=== PATIENT | female | born 1945 | race African-American/Black ===

== ENCOUNTER 2018-05-03 08:05 | Inpatient (IN) ==
[2018-05-01 13:25] LABS: Basophils % 0.7 % (0.0-0.8); Eosinophils # 0.2 10*3/uL (0.0-0.87); Hematocrit 39.3 VOL% (35.7-47.0); Hemoglobin 12.7 GM/DL (12.0-16.0); Immature Granulocytes % 0.2 %; Immature Granulocytes Absolute 0.01 #; Lymphocytes % 34.4 % (21.3-54.2); Mean Corpuscular HGB Conc 32.3 GM/DL (32-36); Mean Corpuscular Hemoglobin 28 PG (27-34); Mean Corpuscular Volume 85.6 FL (87-102); Monocytes # 0.5 10*3/uL (0.11-0.8); Monocytes % 8.2 % (1.7-12.7); Neutrophils % 52.5 % (38.7-73.9); Platelet Count 278 T/CUMM (130-400); Red Blood Count 4.59 MC/CUMM (3.8-5.5); Red Cell Distribution Width 14.4 % (9.3-17.3); White Blood Count 5.8 T/CUMM (4-12)
[2018-05-01 13:43] LABS: Alanine Aminotransferase 21 U/L (13-56); Albumin 3.5 G/DL (3.4-5.0); Alkaline Phosphatase 109 U/L (45-117); Amylase 40 U/L (25-115); Aspartate Amino Transferase 16 U/L (0-37); Bilirubin,Total < 0.39 MG/DL (0.2-1.0); Blood Urea Nitrogen 23 MG/DL (7-18); Calcium 8.8 MG/DL (8.5-10.1); Glucose 133 MG/DL (74-106); Osmolality,Calculated 282.5 MOS/KG (273-304); Sodium 139 MMOL/L (136-145)
[~2018-05-03 08:05] MED LIST: ceFAZolin 1,000 MG VIAL ONE
[2018-05-03] MEDS ORDERED: LIDOCAINE 1%/EPI INJ 20 ML VIAL ONE (08:36)
[2018-05-03] MEDS ORDERED: BUPIVACAINE 0.25% /EPI 10 ML VIAL ONE (08:36)
[2018-05-03] MEDS ORDERED: TISSUE ADHESIVE 1 EACH APPLICATOR TOP ONE (08:36)
[2018-05-03] MEDS ORDERED: DIAZEPAM 5 MG TABLET PO ONE (08:53)
[2018-05-03] MEDS ORDERED: LACTATED RINGERS 1,000 ML IV SCH (09:00)
[2018-05-03] MEDS ORDERED: ONDANSETRON 4 MG/2 ML VIAL IV PRN ×2 (10:26→10:45)
[2018-05-03] MEDS ORDERED: PROPOFOL 200 MG/20 ML VIAL IV ONE (10:32)
[2018-05-03] MEDS ORDERED: ONDANSETRON 4 MG/2 ML VIAL ONE (10:32)
[2018-05-03] MEDS ORDERED: fentaNYL 100 MCG/2 ML VIAL ONE (10:32)
[2018-05-03] MEDS ORDERED: SEVOFLURANE 1 UNIT/15 MINUTE INH ONE (10:32)
[2018-05-03] MEDS ORDERED: DEXAMETHASONE 10 MG/1 ML VIAL ONE (10:32)
[2018-05-03] MEDS ORDERED: ROCURONIUM 100 MG/10 ML VIAL IV ONE (10:33)
[2018-05-03] MEDS ORDERED: GLYCOPYRROLATE 0.4 MG/2 ML VIAL ONE (10:33)
[2018-05-03] MEDS ORDERED: ACETAMINOPHEN 1,000 MG/100 ML VIAL IV ONE (10:33)
[2018-05-03] MEDS ORDERED: SUCCINYLCHOLINE 200 MG/10 ML VIAL ONE (10:33)
[2018-05-03] MEDS ORDERED: NEOSTIGMINE 10 MG/10 ML VIAL ONE (10:33)
[2018-05-03] MEDS ORDERED: hydrALAZINE 20 MG/1 ML VIAL ONE (10:34)
[2018-05-03] MEDS ORDERED: diphenhydrAMINE 50 MG/1 ML VIAL IV PRN (10:45)
[2018-05-03] MEDS ORDERED: MEPERIDINE 25 MG/1 ML VIAL IV PRN (10:45)
[2018-05-03] MEDS ORDERED: PROMETHAZINE INJ 25 MG in SODIUM CHLORIDE 0.9% 50 ML IV PRN (10:45)
[2018-05-03] MEDS ORDERED: MORPHINE 10 MG/1 ML VIAL IV PRN (10:45)
[2018-05-03] MEDS ORDERED: hydrALAZINE 20 MG/1 ML VIAL IV ONE (10:45)
[2018-05-03 12:38] LABS: Hematocrit 40.6 VOL% (35.7-47.0); Hemoglobin 13.2 GM/DL (12.0-16.0)
[2018-05-03] MEDS ORDERED: GLUCAGON 1 MG VIAL IM PRN ×2 (13:02)
[2018-05-03] MEDS ORDERED: DEXTROSE 50% 25 GM/50 ML VIAL IV PRN ×2 (13:02)
[2018-05-03] MEDS: INSULIN GLARGINE 100 UNIT/ML SUBCUT SCH (13:15)
[2018-05-03] MEDS: DICLOFENAC 1% GEL 100 GM TUBE TOP SCH ×3 (13:41→20:57)
[2018-05-03] MEDS: INSULIN LISPRO 100 UNIT/ML SUBCUT SCH ×2 (17:34→20:56)
[2018-05-03] MEDS: MORPHINE 4 MG/1 ML VIAL IV PRN (17:35)
[2018-05-03 19:32] LABS: Hematocrit 40.1 VOL% (35.7-47.0); Hemoglobin 13.3 GM/DL (12.0-16.0)
[2018-05-03] MEDS: METOPROLOL TARTRATE 100 MG TABLET PO SCH (20:57)
[2018-05-04] MEDS: MORPHINE 4 MG/1 ML VIAL IV PRN (01:13)
[2018-05-04 05:02] LABS: Hemoglobin 12.1 GM/DL (12.0-16.0)
[2018-05-04 05:16] LABS: Calcium 8.6 MG/DL (8.5-10.1); Osmolality,Calculated 284.5 MOS/KG (273-304); Potassium 3.7 MMOL/L (3.5-5.1)
[2018-05-04] MEDS: INSULIN LISPRO 100 UNIT/ML SUBCUT SCH ×4 (09:19→20:24)
[2018-05-04] MEDS: INSULIN GLARGINE 100 UNIT/ML SUBCUT SCH (09:20)
[2018-05-04] MEDS: SIMVASTATIN 20 MG TABLET PO SCH (09:23)
[2018-05-04] MEDS: METOPROLOL TARTRATE 100 MG TABLET PO SCH ×2 (09:23→20:25)
[2018-05-04] MEDS: SERTRALINE 100 MG TABLET PO SCH (09:24)
[2018-05-04] MEDS: DICLOFENAC 1% GEL 100 GM TUBE TOP SCH ×4 (09:24→20:24)
[2018-05-04] MEDS: hydrOXYzine HCL 25 MG TABLET PO SCH (09:24)
[2018-05-04] MEDS ORDERED: MAGNESIUM SULF RIDER 2 GM in PREMIX 1 EACH IV PRN (13:38)
[2018-05-04] MEDS ORDERED: MAGNESIUM SULF RIDER 4 GM in PREMIX 1 EACH IV PRN (13:38)
[2018-05-05 06:26] LABS: Basophils % 0.2 % (0.0-0.8); Eosinophils # 0.1 10*3/uL (0.0-0.87); Eosinophils % 1.1 % (0.00-10.9); Hematocrit 37.1 VOL% (35.7-47.0); Hemoglobin 11.9 GM/DL (12.0-16.0); Immature Granulocytes % 0.3 %; Immature Granulocytes Absolute 0.03 #; Lymphocytes # 1.4 10*3/uL (1.4-4.0); Lymphocytes % 15.6 % (21.3-54.2); Mean Corpuscular HGB Conc 32.1 GM/DL (32-36); Mean Corpuscular Hemoglobin 27 PG (27-34); Mean Corpuscular Volume 84.5 FL (87-102); Mean Platelet Volume 11.6 FL (9.6-12.0); Monocytes # 0.7 10*3/uL (0.11-0.8); Monocytes % 7.4 % (1.7-12.7); Neutrophils # 6.9 10*3/uL (1.4-7.4); Neutrophils % 75.4 % (38.7-73.9); Platelet Count 217 T/CUMM (130-400); Red Blood Count 4.39 MC/CUMM (3.8-5.5); Red Cell Distribution Width 14.7 % (9.3-17.3); White Blood Count 9.2 T/CUMM (4-12)
[2018-05-05 06:46] LABS: Calcium 9.2 MG/DL (8.5-10.1); Osmolality,Calculated 282.3 MOS/KG (273-304); Potassium 3.4 MMOL/L (3.5-5.1)
[2018-05-05] MEDS: MORPHINE 4 MG/1 ML VIAL IV PRN (07:13)
[2018-05-05] MEDS: INSULIN GLARGINE 100 UNIT/ML SUBCUT SCH (09:31)
[2018-05-05] MEDS: SERTRALINE 100 MG TABLET PO SCH (09:32)
[2018-05-05] MEDS: hydrOXYzine HCL 25 MG TABLET PO SCH (09:32)
[2018-05-05] MEDS: INSULIN LISPRO 100 UNIT/ML SUBCUT SCH (09:33)
[2018-05-05] MEDS: SIMVASTATIN 20 MG TABLET PO SCH (09:33)
[2018-05-05] MEDS: DICLOFENAC 1% GEL 100 GM TUBE TOP SCH (09:33)
[2018-05-05] MEDS: METOPROLOL TARTRATE 100 MG TABLET PO SCH (09:33)
[2018-05-05 12:08] VITALS: BP 183/96
== END 2018-05-05 11:47 | disposition home or self-care (01) | DRG 418 ==
LOC: N.OR 08:05 → N.SDSINP 08:07 → N.3E 11:04
PROVIDERS: ADMIT Surgery; ATTEND Surgery
PROC: LAPCHOL (2018-05-03 09:08)

== ENCOUNTER 2021-07-12 14:17 | Inpatient (IN) ==
[2021-07-12] MEDS ORDERED: MORPHINE 2 MG/1 ML SYRINGE IV STA (18:48)
[2021-07-12] MEDS ORDERED: ALUM/MAG/SIMETH/LIDO VISC 1:1 30 ML BOTTLE PO STA (18:48)
[2021-07-12] MEDS ORDERED: ONDANSETRON ODT 4 MG TABLET PO STA (18:48)
[2021-07-12] MEDS ORDERED: PANTOPRAZOLE 40 MG VIAL IV STA (18:48)
[2021-07-12] MEDS ORDERED: SODIUM CHLORIDE 0.9% 500 ML IV STA ×2 (18:48→20:07)
[2021-07-12 18:54] LABS: Basophils % 0.1 % (0.0-0.8); Hematocrit 37.7 VOL% (35.7-47.0); Hemoglobin 11.4 GM/DL (12.0-16.0); Immature Granulocytes % 0.5 %; Immature Granulocytes Absolute 0.04 #; Lymphocytes # 1.3 10*3/uL (1.4-4.0); Lymphocytes % 17.9 % (21.3-54.2); Mean Corpuscular HGB Conc 30.2 GM/DL (32-36); Mean Corpuscular Volume 84.3 FL (87-102); Mean Platelet Volume 10.9 FL (9.6-12.0); Monocytes % 7.7 % (1.7-12.7); Neutrophils % 73.8 % (38.7-73.9); Platelet Count 391 T/CUMM (130-400); Red Blood Count 4.47 MC/CUMM (3.8-5.5); White Blood Count 7.3 T/CUMM (4-12)
[2021-07-12] MEDS ORDERED: PIPERACILLIN/TAZOBACTAM 3,375 MG in SODIUM CHLORIDE 0.9% 100 ML IV STA (20:06)
[2021-07-12 20:09] LABS: Alanine Aminotransferase 35 U/L (13-56); Albumin 2.3 G/DL (3.4-5.0); Alkaline Phosphatase 280 U/L (45-117); Amylase 24 U/L (25-115); Aspartate Amino Transferase 89 U/L (0-37); Blood Urea Nitrogen 32 MG/DL (7-18); Calcium 8.8 MG/DL (8.5-10.1); Carbon Dioxide 25 MMOL/L (21-32); Estimated Glom Filtration Rate 109 ML/MIN; Glucose 257 MG/DL (74-106); Osmolality,Calculated 290.7 MOS/KG (273-304); Potassium 4.7 MMOL/L (3.5-5.1); Sodium 138 MMOL/L (136-145); Total Protein 6.5 G/DL (6.4-8.2)
[2021-07-12] MEDS ORDERED: MAGNESIUM SULF RIDER 2 GM/50 ML PREMIX IV STA (20:11)
[2021-07-12] MEDS ORDERED: ASPIRIN EC 325 MG TABLET PO STA (20:53)
[2021-07-12 21:28] LABS: Bacteria,Urine Occasional /HPF (Few); Bilirubin,Urine Negative (Negative); Blood, Urine Negative (Negative); Glucose,Urine (UA) Negative (Negative); Hyaline Casts,Urine 3 /LPF (0-3); Ketones,Urine Negative (Negative); Mucus,Urine Occasional /LPF (Occasional); Nitrite,Urine Negative (Negative); Protein,Urine Negative; RBC,Urine 3 /HPF (0-4); Squamous Epithelial Cell,Urine Occasional /HPF (0-10); Urine Appearance CLEAR (Clear); Urine Color Amber (Yellow); Urine Specific Gravity 1.024 (1.001-1.035)
[2021-07-12] MEDS ORDERED: POTASSIUM CHLORIDE RIDER 10 MEQ/100 ML PREMIX IV PRN (22:36)
[2021-07-12] MEDS ORDERED: ONDANSETRON 4 MG/2 ML VIAL IV PRN (22:36)
[2021-07-12] MEDS ORDERED: SIMETHICONE CHEW 125 MG TABLET PO PRN (22:36)
[2021-07-12] MEDS ORDERED: MAGNESIUM SULF RIDER 4 GM/100 ML PREMIX IV PRN (22:36)
[2021-07-12] MEDS ORDERED: MAGNESIUM SULF RIDER 2 GM/50 ML PREMIX IV PRN (22:36)
[2021-07-12] MEDS ORDERED: DEXTROSE 50% 25 GM/50 ML VIAL IV PRN (22:36)
[2021-07-12] MEDS ORDERED: ACETAMINOPHEN 325 MG TABLET PO PRN (22:36)
[2021-07-12] MEDS ORDERED: hydrALAZINE 20 MG/1 ML VIAL IV PRN (22:36)
[2021-07-12] MEDS ORDERED: POTASSIUM CHLORIDE 20 MEQ TABLET PO PRN (22:36)
[2021-07-12] MEDS ORDERED: GLUCAGON 1 MG VIAL IM PRN (22:36)
[2021-07-12] MEDS ORDERED: ENOXAPARIN 120 MG/0.8 ML SYRINGE SUBCUT STA (22:36)
[2021-07-12] MEDS ORDERED: ENOXAPARIN 40 MG/0.4 ML SYRINGE SUBCUT SCH (23:00)
[2021-07-12] MEDS ORDERED: ENOXAPARIN 100 MG/ML SYRINGE SUBCUT STA (23:17)
[2021-07-13] MEDS ORDERED: FUROSEMIDE 40 MG/4 ML VIAL IV STA (00:23)
[2021-07-13] MEDS: LEVOFLOXACIN INJ 750 MG/150 ML PREMIX IV SCH (00:53)
[2021-07-13 04:41] LABS: Eosinophils % 0.1 % (0.00-10.9); Hematocrit 34.8 VOL% (35.7-47.0); Hemoglobin 10.6 GM/DL (12.0-16.0); Immature Granulocytes % 0.6 %; Immature Granulocytes Absolute 0.04 #; Lymphocytes # 1.6 10*3/uL (1.4-4.0); Mean Corpuscular HGB Conc 30.5 GM/DL (32-36); Mean Corpuscular Volume 84.9 FL (87-102); Mean Platelet Volume 11.6 FL (9.6-12.0); Monocytes % 13.5 % (1.7-12.7); Neutrophils % 63.8 % (38.7-73.9); Platelet Count 373 T/CUMM (130-400); Red Cell Distribution Width 20.7 % (9.3-17.3)
[2021-07-13] MEDS: PIPERACILLIN/TAZOBACTAM 3,375 MG in SODIUM CHLORIDE 0.9% 100 ML IV SCH ×2 (05:12→16:59)
[2021-07-13 05:16] LABS: Calcium 8.7 MG/DL (8.5-10.1); Osmolality,Calculated 289.4 MOS/KG (273-304); Potassium 4.1 MMOL/L (3.5-5.1); Risk Ratio 3.33; Thyroid Stimulating Hormone 1.15 uIU/ml (0.358-3.74); VLDL Cholesterol 29.2 MG/DL
[2021-07-13] MEDS: INSULIN REGULAR 100 UNIT/ML SUBCUT SCH ×4 (08:48→20:56)
[2021-07-13] MEDS: DOCUSATE SODIUM 100 MG CAPSULE PO SCH ×2 (09:40→20:55)
[2021-07-13] MEDS: PANTOPRAZOLE 40 MG VIAL IV SCH (09:47)
[2021-07-13] MEDS: ENOXAPARIN 80 MG/0.8 ML SYRINGE SUBCUT SCH (11:28)
[2021-07-13] MEDS ORDERED: DEXTROSE 50% 25 GM/50 ML VIAL IV PRN (15:12)
[2021-07-13] MEDS: CLOTRIMAZOLE 10 MG TROCHE PO SCH ×2 (17:13→21:24)
[2021-07-14] MEDS: LEVOFLOXACIN INJ 750 MG/150 ML PREMIX IV SCH (00:12)
[2021-07-14] MEDS: PIPERACILLIN/TAZOBACTAM 3,375 MG in SODIUM CHLORIDE 0.9% 100 ML IV SCH ×5 (00:26→23:13)
[2021-07-14] MEDS: ENOXAPARIN 80 MG/0.8 ML SYRINGE SUBCUT SCH ×3 (00:26→22:37)
[2021-07-14] MEDS: CLOTRIMAZOLE 10 MG TROCHE PO SCH ×6 (06:13→22:36)
[2021-07-14 06:21] LABS: Basophils % 0.3 % (0.0-0.8); Eosinophils # 0.1 10*3/uL (0.0-0.87); Eosinophils % 0.6 % (0.00-10.9); Hematocrit 32.5 VOL% (35.7-47.0); Immature Granulocytes % 0.8 %; Immature Granulocytes Absolute 0.06 #; Lymphocytes # 1.4 10*3/uL (1.4-4.0); Lymphocytes % 17.4 % (21.3-54.2); Mean Corpuscular HGB Conc 30.8 GM/DL (32-36); Mean Corpuscular Volume 85.8 FL (87-102); Mean Platelet Volume 12.1 FL (9.6-12.0); Monocytes % 13.1 % (1.7-12.7); Neutrophils % 67.8 % (38.7-73.9); Platelet Count 309 T/CUMM (130-400); Red Blood Count 3.79 MC/CUMM (3.8-5.5); Red Cell Distribution Width 20.8 % (9.3-17.3); White Blood Count 7.8 T/CUMM (4-12)
[2021-07-14 06:48] LABS: Calcium 8.2 MG/DL (8.5-10.1); Osmolality,Calculated 290.3 MOS/KG (273-304); Potassium 3.5 MMOL/L (3.5-5.1)
[2021-07-14] MEDS: DOCUSATE SODIUM 100 MG CAPSULE PO SCH ×2 (09:49→20:27)
[2021-07-14] MEDS: PANTOPRAZOLE 40 MG VIAL IV SCH (09:51)
[2021-07-14] MEDS: INSULIN REGULAR 100 UNIT/ML SUBCUT SCH ×4 (12:41→20:28)
[2021-07-14] MEDS: MORPHINE 2 MG/1 ML SYRINGE IV PRN (18:25)
[2021-07-14] MEDS: DESITIN 4OZ/NYSTATIN 15 GRAM MIXTURE PASTE TOP SCH (20:29)
[2021-07-14] MEDS ORDERED: diphenhydrAMINE CAP 25 MG CAPSULE PO PRN (21:54)
[2021-07-15] MEDS: LEVOFLOXACIN INJ 750 MG/150 ML PREMIX IV SCH (03:25)
[2021-07-15 06:04] LABS: Basophils % 0.2 % (0.0-0.8); Eosinophils # 0.1 10*3/uL (0.0-0.87); Eosinophils % 1.2 % (0.00-10.9); Hematocrit 31.7 VOL% (35.7-47.0); Hemoglobin 9.6 GM/DL (12.0-16.0); Immature Granulocytes % 0.7 %; Immature Granulocytes Absolute 0.06 #; Lymphocytes % 11.6 % (21.3-54.2); Mean Corpuscular HGB Conc 30.3 GM/DL (32-36); Mean Corpuscular Volume 85.9 FL (87-102); Mean Platelet Volume 12.5 FL (9.6-12.0); Monocytes % 13.1 % (1.7-12.7); Neutrophils % 73.2 % (38.7-73.9); Platelet Count 291 T/CUMM (130-400); Red Blood Count 3.69 MC/CUMM (3.8-5.5); Red Cell Distribution Width 20.7 % (9.3-17.3); White Blood Count 8.9 T/CUMM (4-12)
[2021-07-15 06:15] LABS: Osmolality,Calculated 280.7 MOS/KG (273-304); Potassium 3.3 MMOL/L (3.5-5.1)
[2021-07-15] MEDS: CLOTRIMAZOLE 10 MG TROCHE PO SCH ×5 (06:33→21:38)
[2021-07-15 08:28] LABS: INR 1.1; PT Patient Result 12.7 SECS (10.5-12.0)
[2021-07-15] MEDS: INSULIN REGULAR 100 UNIT/ML SUBCUT SCH ×4 (08:28→21:24)
[2021-07-15] MEDS ORDERED: fentaNYL 12 MCG/HR PATCH TRANSDERM SCH (09:00)
[2021-07-15] MEDS: PIPERACILLIN/TAZOBACTAM 3,375 MG in SODIUM CHLORIDE 0.9% 100 ML IV SCH ×3 (10:24→23:25)
[2021-07-15] MEDS: PANTOPRAZOLE 40 MG VIAL IV SCH (10:25)
[2021-07-15] MEDS: DOCUSATE SODIUM 100 MG CAPSULE PO SCH ×2 (10:25→21:24)
[2021-07-15] MEDS: DESITIN 4OZ/NYSTATIN 15 GRAM MIXTURE PASTE TOP SCH ×2 (10:26→21:24)
[2021-07-15] MEDS: MORPHINE 2 MG/1 ML SYRINGE IV PRN ×2 (10:28→15:24)
[2021-07-15] MEDS: ENOXAPARIN 80 MG/0.8 ML SYRINGE SUBCUT SCH ×2 (13:00→23:26)
[2021-07-16] MEDS: LEVOFLOXACIN INJ 750 MG/150 ML PREMIX IV SCH (03:31)
[2021-07-16] MEDS: CLOTRIMAZOLE 10 MG TROCHE PO SCH ×2 (05:05→09:39)
[2021-07-16] MEDS: MORPHINE 2 MG/1 ML SYRINGE IV PRN (09:14)
[2021-07-16] MEDS: DOCUSATE SODIUM 100 MG CAPSULE PO SCH (09:39)
[2021-07-16] MEDS: INSULIN REGULAR 100 UNIT/ML SUBCUT SCH ×2 (09:41→11:54)
[2021-07-16] MEDS: PIPERACILLIN/TAZOBACTAM 3,375 MG in SODIUM CHLORIDE 0.9% 100 ML IV SCH (09:42)
[2021-07-16] MEDS: PANTOPRAZOLE 40 MG VIAL IV SCH (09:42)
[2021-07-16] MEDS: DESITIN 4OZ/NYSTATIN 15 GRAM MIXTURE PASTE TOP SCH (09:43)
[2021-07-16 10:10] VITALS: BP 106/65
[2021-07-16] MEDS: ENOXAPARIN 80 MG/0.8 ML SYRINGE SUBCUT SCH (11:54)
== END 2021-07-16 11:30 | disposition hospice, home (50) | DRG 374 ==
LOC: EDUNIT# → EDBD → N.ED 14:17 → N.EDINP 22:36 → SUATTDRO 22:36 → N.2W 07-13 14:25
PROVIDERS: ADMIT Nurse Practitioner Family; ATTEND Internal Medicine